=== PATIENT | male | born 1970 | race Caucasian/White ===

== ENCOUNTER 2016-09-25 09:42 | Emergency (ER) | payer OTHER ==
[2016-09-25] MEDS ORDERED: PROPARACAINE 0.5% 15 ML OPHT DROP LEFTEYE ONE (09:53)
[2016-09-25] MEDS ORDERED: PROPARACAINE 0.5% 15 ML OPHT DROP ONE (09:54)
--- NOTE | 2016-09-25 09:55 | UCPHY ---
H & P Patient Type: New Time Seen by Provider: 09/25/16 09:47 HPI/ROS: Chief Complaint: Left eye pain HPI: 45-year-old contact lens wearer noticed irritation in his left eye yesterday. He removed his contact lens. This morning he woke up with increasing irritation redness some blurry vision in that eye. Also has a mild headache. He has not put his contacts back in. 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 Did not work yesterday. Did not have any symptoms prior to yesterday afternoon. Has had some vision changes that I. Also is feeling a little bit dizzy a and mild nausea. Patient does state that that was his last her contacts and he was wearing them longer than he probably should have. Patient does think he has been rubbing it since yesterday as well. ROS: 10 point Review of Systems is negative except as noted in the HPI. PMH: None Medications: None Allergies: None Social History: No smoking, occasional alcohol, no recreational drug use Family History: non-contributory Physical Exam: Eye Exam EOM: Intact OU Visual Brooks: Intact OU Pupil: Equal, round and reactive to light and accomodation OU External: Lids, lashes and margins normal OU Slit Lamp; significant conjunctival injection of his left eye Iris normal, corneal edema, Anterior chambers clear without cells or flare, no hyphema, normal angles, no pain with consensual light reflex Fluorosceine exam: Significant with central fluorescein uptake with spiculated fluorescein uptake around - Family History Significant Family History: No pertinent family hx Constitutional: Initial Vital Signs Heart Rate 57 L 09/25/16 09:57 Respiratory Rate 18 09/25/16 09:57 Blood Pressure 151/100 H 09/25/16 09:57 O2 Sat (%) 100 09/25/16 09:57 O2 Delivery Mode Room Air Allergies/Adverse Reactions: No Known Allergies Allergy (Verified 09/25/16 09:59) Home Medications: Medication Instructions Recorded Ciprofloxacin [Ciloxan Opth Drops] 2 drops OP Q2 7 Days 09/25/16 Hydrocodone/Acetaminophen 1 - 2 each PO Q4-6PRN PRN #10 09/25/16 [Hydrocodon-Acetaminophen 5-325] tablet Medical Decision Making ED Course/Re-evaluation: Patient has a contact lens associated conjunctivitis. There is no findings suggestive of acute iritis IE there is no cell or flare. He has no pain with consensual light reflex. Will start him on Cipro ophthalmologic and follow up with eye doctor - Data Points Medications Given: Discontinued Medications Proparacaine HCl (Alcaine 0.5%) 1 drops LEFTEYE ONCE ONE Stop: 09/25/16 09:54 Last Admin: 09/25/16 10:00 Dose: 1 drop Departure - Departure Disposition: Home, Routine, Self-Care Clinical Impression: Conjunctivitis, Keratitis Condition: Good Instructions: Keratitis (ED), Conjunctivitis (ED) Additional Instructions: Follow up with Dr. Luong in 1-2 days for re-evaluation. Referrals: NONE *PRIMARY CARE P,. [Primary Care Provider] - As per Instructions Tony Luong MD [Medical Doctor] - As per Instructions Prescriptions: Ciprofloxacin [Ciloxan Opth Drops] 2 drops OP Q2 7 Days Hydrocodone/Acetaminophen [Hydrocodon-Acetaminophen 5-325] 1 - 2 each PO Q4- 6PRN PRN #10 tablet PRN Reason: Pain, Severe - PQRS PQRS Measurement: NA
[2016-09-25 10:04] VITALS: BP 151/100; PULSE 57; RESP 18; O2SAT 100
[2016-09-25 10:40] VITALS: TEMP 98.2
== END 2016-09-25 10:38 | disposition home or self-care (01) ==
LOC: CED 09:42
DX: H10.9 Unspecified conjunctivitis (principal); H16.9 Unspecified keratitis
CPT/HCPCS: 99202-PO; G0463-PO